=== PATIENT | male | born 1990 | race Caucasian/White ===

== ENCOUNTER 2016-07-15 11:48 | Emergency (ER) | payer SELFPAY ==
[2016-07-15 12:18] VITALS: BP 133/70
[2016-07-15] MEDS ORDERED: Metoclopramide 10 MG/2 ML SDV IVPUSH ONE (12:25)
[2016-07-15] MEDS ORDERED: HYDROmorphone 0.5 MG/0.5 ML Syringe IVPUSH ONE (12:25)
[2016-07-15] MEDS ORDERED: Ketorolac 30 MG/ML SDV IVPUSH SCH (12:30)
[2016-07-15] MEDS ORDERED: Dextrose 5%-0.9% NaCl 1,000 ML IV SCH (12:30)
--- NOTE | 2016-07-15 13:46 | EDM.PDOC ---
ED HPI GENERAL MEDICAL PROBLEM - General Chief Complaint: Gastrointestinal Problem Stated Complaint: DIARRHEA x 3 DAYS, BODY ACHES Time Seen by Provider: 07/15/16 12:23 Source of Information: Reports: Patient History Limitations: Reports: Language Barrier (history obtained by lubrication supervisor. ) - History of Present Illness INITIAL COMMENTS - FREE TEXT/NARRATIVE: 26-year-old male who is [place] speaking presents the ED apparently with nausea vomiting diarrhea since July 11. He states bilious emesis and liquid stool in large volume. No blood per rectum or vomiting. He has diffuse upper abdominal pain from vomiting so much. Lightheaded and dizzy. He eats at home he doesn't think they need anything that could cause food poisoning. So far today since 3:00 he said 5 loose stools. No vomiting but dry heaves today. He takes no medications and has no allergies. No previous abdominal surgery . Denies any use of antibiotics in the last 6 weeks. Onset: Sudden Onset Date: 07/11/16 Onset Time: 22:00 Duration: Day(s):, Constant, Getting Worse Location: Reports: Abdomen Quality: Reports: Ache Severity: Moderate (Abdominal pain is a deep ache in the epigastric region.) Improves with: Reports: None Worsens with: Reports: Other Context: Denies: Activity (Try to eat or drink.), Exercise, Lifting, Sick Contact, Trauma, Other Associated Symptoms: Reports: Fever/Chills, Loss of Appetite, Malaise, Nausea/ Vomiting, Weakness (Intractable for 3-1/2 days.). Denies: No Other Symptoms, Confusion, Chest Pain, Cough, cough w sputum, Diaphoresis, Headaches (Chills but no fever), Rash, Seizure, Shortness of Breath, Syncope Treatments DRIVER/GUIDE: Reports: Other (see below) (None.) Upper Abdominal Pain Score (Numeric/FACES): 10 - Related Data Allergies Allergy/AdvReac Type Severity Reaction Status Date / Time SEA FOOD Allergy Rash Uncoded 07/15/16 12:14 Home Meds: Home Meds Dicyclomine [Bentyl] 20 mg IM Q6H #6 vial 07/15/16 [Rx] Ondansetron [Zofran ODT] 4 mg PO Q6H #8 tab.dis 07/15/16 [Rx] Social & Family History - Tobacco Use Smoking Status *Q: Never Smoker Second Hand Smoke Exposure: No - Recreational Drug Use Recreational Drug Use: No - Living Situation & Occupation Living situation: Reports: Single Occupation: Employed ED ROS GENERAL - Review of Systems Review Of Systems: See Below Constitutional: Reports: Chills, Malaise, Weakness, Fatigue, Decreased Appetite , Weight Loss. Denies: Fever HEENT: Reports: No Symptoms Respiratory: Reports: No Symptoms Cardiovascular: Reports: No Symptoms Endocrine: Reports: No Symptoms GI/Abdominal: Reports: Abdominal Pain (Epigastrium from vomiting so much.), Diarrhea (Title nausea and vomiting for 4 days to loose watery yellowish stools. No blood per rectum), Nausea, Vomiting : Reports: No Symptoms Musculoskeletal: Reports: Other Skin: Reports: No Symptoms (Aches all over and generalized myalgia.) Neurological: Reports: Headache, Difficulty Walking, Weakness Psychiatric: Reports: No Symptoms (Due to weakness) Hematologic/Lymphatic: Reports: No Symptoms Immunologic: Reports: No Symptoms ED EXAM, GI/ABD - Physical Exam Exam: See Below Exam Limited By: Language Barrier (He speaks mostly [place] although he seems to understand he looks pretty well. History and physical examination were done through an lubrication supervisor.) General Appearance: Alert, WD/WN, Mild Distress (He does look ill and volume depleted.) Eyes: Bilateral: Normal Appearance (No jaundice.) Ears: Normal TMs Throat/Mouth: Normal Inspection, Normal Lips, Normal Oropharynx, Other Head: Atraumatic, Normocephalic (Tongue is dry and coated) Neck: Normal Inspection, Supple, Non-Tender, Full Range of Motion. No: Lymphadenopathy (R) Respiratory/Chest: No Respiratory Distress, Lungs Clear, Normal Breath Sounds, No Accessory Muscle Use Cardiovascular: Normal Peripheral Pulses, Regular Rate, Rhythm, No Edema, No Gallop, No Murmur GI/Abdominal: No Distention, No Abnormal Bruit, No Mass, Pelvis Stable, Hyperactive Bowel Sounds, Tenderness (Only in the epigastrium on deep palpation. He has abdominal wall pain from vomiting so much I believe. In the epigastrium only. The rest of the abdomen is benign.), Guarding. No: Rebound (Male) Exam: No Hernia Back Exam: Normal Inspection, Full Range of Motion. No: CVA Tenderness (L), CVA Tenderness (R) Extremities: Normal Inspection, Normal Range of Motion, Non-Tender, No Pedal Edema, Normal Capillary Refill Neurological: Alert, Oriented, CN II-XII Intact, Normal Cognition, Normal Reflexes, No Motor/Sensory Deficits Psychiatric: Normal Affect, Normal Mood Skin Exam: Warm, Dry, Intact, Normal Color, No Rash Course - Vital Signs Last Recorded V/S: Last Vital Signs Temp 36.7 C 07/15/16 12:15 Pulse 83 07/15/16 12:15 Resp 16 07/15/16 12:15 BP 133/70 07/15/16 12:15 Pulse Ox 96 07/15/16 12:15 - Orders/Labs/Meds Labs: Laboratory Tests 07/15/16 07/15/16 07/15/16 Range/Units 12:45 12:45 12:45 WBC 7.38 (4.23-9.07) K/mm3 RBC 4.99 (4.63-6.08) M/mm3 Hgb 14.9 (13.7-17.5) gm/L Hct 42.8 (40.1-51.0) % MCV 85.8 (79.0-92.2) fl MCH 29.9 (25.7-32.2) pg MCHC 34.8 (32.2-35.5) g/dl RDW Std Deviation 41.9 (35.1-43.9) fL Plt Count 351 H (163-337) K/mm3 MPV 9.6 (9.4-12.3) fl Neutrophils % (Manual) 71 H (40-60) % Band Neutrophils % 3 (0-10) % Lymphocytes % (Manual) 15 L (20-40) % Atypical Lymphs % 0 % Monocytes % (Manual) 11 H (2-10) % Eosinophils % (Manual) 0 L (0.8-7.0) % Basophils % (Manual) 0 L (0.2-1.2) Platelet Estimate Adequate Plt Morphology Comment See note RBC Morph Comment Normal Sodium 142 (136-145) mEq/L Potassium 3.9 (3.5-5.1) mEq/L Chloride 105 (98-107) mEq/L Carbon Dioxide 27 (21-32) mEq/L Anion Gap 13.9 (5-15) BUN 13 (7-18) mg/dL Creatinine 1.1 (0.7-1.3) mg/dL Est Cr Clr Drug Dosing 100.87 mL/min Estimated GFR (MDRD) > 60 (>60) mL/min BUN/Creatinine Ratio 11.8 L (14-18) Glucose 103 (74-106) mg/dL Lactic Acid 0.9 (0.4-2.0) mmol/L Calcium 9.2 (8.5-10.1) mg/dL Total Bilirubin 0.5 (0.2-1.0) mg/dL AST 26 (15-37) U/L ALT 59 (16-63) U/L Alkaline Phosphatase 80 (46-116) U/L C-Reactive Protein < 0.2 (<1.0) mg/dL Total Protein 8.2 (6.4-8.2) g/dl Albumin 4.4 (3.4-5.0) g/dl Globulin 3.8 gm/dL Albumin/Globulin Ratio 1.2 (1-2) Lipase 133 (73-393) U/L Ketones (0.0-0.3) mM 07/15/16 Range/Units 12:45 WBC (4.23-9.07) K/mm3 RBC (4.63-6.08) M/mm3 Hgb (13.7-17.5) gm/L Hct (40.1-51.0) % MCV (79.0-92.2) fl MCH (25.7-32.2) pg MCHC (32.2-35.5) g/dl RDW Std Deviation (35.1-43.9) fL Plt Count (163-337) K/mm3 MPV (9.4-12.3) fl Neutrophils % (Manual) (40-60) % Band Neutrophils % (0-10) % Lymphocytes % (Manual) (20-40) % Atypical Lymphs % % Monocytes % (Manual) (2-10) % Eosinophils % (Manual) (0.8-7.0) % Basophils % (Manual) (0.2-1.2) Platelet Estimate Plt Morphology Comment RBC Morph Comment Sodium (136-145) mEq/L Potassium (3.5-5.1) mEq/L Chloride (98-107) mEq/L Carbon Dioxide (21-32) mEq/L Anion Gap (5-15) BUN (7-18) mg/dL Creatinine (0.7-1.3) mg/dL Est Cr Clr Drug Dosing mL/min Estimated GFR (MDRD) (>60) mL/min BUN/Creatinine Ratio (14-18) Glucose (74-106) mg/dL Lactic Acid (0.4-2.0) mmol/L Calcium (8.5-10.1) mg/dL Total Bilirubin (0.2-1.0) mg/dL AST (15-37) U/L ALT (16-63) U/L Alkaline Phosphatase (46-116) U/L C-Reactive Protein (<1.0) mg/dL Total Protein (6.4-8.2) g/dl Albumin (3.4-5.0) g/dl Globulin gm/dL Albumin/Globulin Ratio (1-2) Lipase (73-393) U/L Ketones 0.23 (0.0-0.3) mM Meds: Medications Discontinued Medications Generic Name Dose Route Start Last Admin Trade Name Freq PRN Reason Stop Dose Admin Hydromorphone HCl 0.5 mg 07/15/16 12:25 07/15/16 12:52 Dilaudid IVPUSH 07/15/16 12:26 0.5 mg ONETIME ONE Administration Dextrose/Sodium Chloride 1,000 mls @ 999 mls/hr 07/15/16 12:30 07/15/16 12:50 Dextrose 5%-Normal Saline IV 999 mls/hr ASDIRECTED NANCY Administration Ketorolac Tromethamine 30 mg 07/15/16 12:30 07/15/16 12:50 Toradol IVPUSH 30 mg ONETIME NANCY Administration Metoclopramide HCl 10 mg 07/15/16 12:25 07/15/16 12:49 Reglan IVPUSH 07/15/16 12:26 10 mg ONETIME ONE Administration Ondansetron HCl 4 mg 07/15/16 15:17 07/15/16 15:36 Zofran Odt PO 07/15/16 15:18 4 mg ONETIME ONE Administration - Radiology Interpretation Free Text/Narrative:: 26-year-old male presents the ED with a history of intractable nausea vomiting and watery diarrhea for 3-1/2 days. He reports that he is hurting everywhere. He continues to have nausea and vomiting of bilious material and dry heaves. Has had 5 loose stools this morning thus far. No history of eating out to suggest foodborne illness. He has no pets or hasn't been around anything with Salmonella. Plan he will have lab work performed and a stool sample provided. In the meantime he will be placed on D5 normal saline at open. Reglan 10 mg IV for nausea relief Toradol 30 mg IV for IVH and inflammation relief and Dilaudid 0.5 mg for abdominal pain relief. - Re-Assessments/Exams Free Text/Narrative Re-Assessment/Exam: 07/15/16 13:57 labs are finally back. They reveal a normal white count is 7.38 hemoglobin 14.9 hematocrit 42.8. Platelets are normal 3 and 51,000. Lactic acid level was normal at 0.9 ketones are elevated at 0.23. Chemistry shows sodium of 142 potassium 3.9. Chloride 105 bicarbonate 27. Any gap is 13.9 normal. Lipase 133. Glucose 103. CRP was less than 0.2. 07/15/16 14:57 differential on the white count was 71% neutrophils and 3% band cells. 07/15/16 15:18 he reports she's feeling much improved. He's get down 6 ounces of Gatorade without any filling of nausea vomiting. Given a Zofran 4 mg sublingually now and then he can fill a prescription for similar medicine to take every 6 hours when necessary. Also Bentyl 20 mg every 6 hours. X6 tablets until the diarrhea abates. Place on a clear fluid diet with twice daily from all -day products and no apple or grape juice until stools are formed back up. Off if any further problems occur. Departure - Departure Time of Disposition: 15:11 Disposition: Home, Self-Care 01 Condition: fair Clinical Impression: Gastroenteritis - Discharge Information Prescriptions: Dicyclomine [Bentyl] 20 mg IM Q6H #6 vial Ondansetron [Zofran ODT] 4 mg PO Q6H #8 tab.dis Instructions: Viral Gastroenteritis, Adult, [id number] Referrals: PCP,None [Primary Care Provider] - Forms: ED Department Discharge, Return to Work/School Form Additional Instructions: Evaluation in the emergency day in regards to viral gastroenteritis with recurrent intractable nausea vomiting and diarrhea over the last 3-1/2 days. You 're treated with intravenous fluid replacement medication and medication Reglan 10 mg IV to stop vomiting. Toradol 30 mg and a lot of 0.5 mg IV for abdominal pain relief. Lab tests proved to be close to normal other than mild dehydration. Treatment at home is to be Zofran 4 mg under the tongue with the first tablet given in the ED before your discharge. Extent would be due about 9: 00 tonight. This is to prevent further nausea and vomiting. Diet is to be clear fluids such as Gatorade or Powerade ideally 5-6 ounces per hour. If this is tolerated then he may advance diet soda crackers and then to bread etc. If this is tolerated he may advance to broth soup or turkey rice turkey noodle soup etc. Stay away from all-day products and no apple or grape juice until stools are formed back up. May use Bentyl tablets 20 mg one tablet every 6 hours to relieve abdominal cramping pain and diarrhea. Off work today tomorrow and the next day until you're eating and her strength is restored enough to return to work.
[2016-07-15] MEDS ORDERED: Ondansetron 4 MG Tab.DIS PO ONE (15:17)
== END 2016-07-15 15:43 | disposition home or self-care (01) ==
LOC: JD.ED 11:48
DX: K52.9 Noninfective gastroenteritis and colitis, unspecified (principal); Z91.013 Allergy to seafood
CPT/HCPCS: 36415; 80053; 82009; 83605; 83690; 85025; 86140; 96361; 96374; 96375; 99284; A9270; J1170; J1885; J2765; J7042

== ENCOUNTER 2016-07-18 06:03 | Emergency (ER) | payer SELFPAY ==
[2016-07-18] MEDS ORDERED: Ondansetron 4 MG/2 ML SDV IVPUSH ONE (06:30)
[2016-07-18] MEDS ORDERED: Sodium Chloride 0.9% 2,000 ML IV STA (06:30)
[2016-07-18] MEDS ORDERED: Sodium Chloride 0.9% 10 ML Syringe FLUSH PRN (06:30)
[2016-07-18] MEDS ORDERED: HYDROmorphone 1 MG/ML Syringe IVPUSH ONE (06:33)
--- NOTE | 2016-07-18 06:39 | EDM.PDOC ---
[id number] Chief Complaint: Gastrointestinal Problem Stated Complaint: VOMITING BLOOD/ DIARRHEA/ BODY ACHES Time Seen by Provider: 07/18/16 06:22 - Related Data Allergies Allergy/AdvReac Type Severity Reaction Status Date / Time SEA FOOD Allergy Rash Uncoded 07/15/16 12:14 Home Meds: Home Meds Dicyclomine [Bentyl] 20 mg IM Q6H #6 vial 07/15/16 [Rx] Ondansetron [Zofran ODT] 4 mg PO Q6H #8 tab.dis 07/15/16 [Rx] Amoxicillin 500 mg PO Q12H #28 capsule 07/18/16 [Rx] Clarithromycin 500 mg PO Q12H #28 tablet 07/18/16 [Rx] Hydrocodone/Acetaminophen [Medora 5-325 Tablet] 1 - 2 each PO Q6H PRN #20 tablet 07/18/16 [Rx] Ondansetron [Zofran ODT] 4 mg PO Q4H PRN #20 tab.dis 07/18/16 [Rx] Pantoprazole Sodium [Protonix] 40 mg PO Q12H #60 tablet. 07/18/16 [Rx] Sucralfate [Carafate] 1 gm PO QIDACANDBED #60 cup 07/18/16 [Rx] Sucralfate [Carafate] 1 gm PO QIDACANDBED #60 tablet 07/18/16 [Rx] metroNIDAZOLE [Flagyl] 500 mg PO Q12H #28 tablet 07/18/16 [Rx] Course - Vital Signs Last Recorded V/S: Last Vital Signs Temp 98.6 F 07/18/16 06:12 Pulse 84 07/18/16 10:31 Resp 18 07/18/16 06:12 BP 130/58 L 07/18/16 10:31 Pulse Ox 96 07/18/16 10:31 Orthostatic Blood Pressure [ 129/77 Standing] Orthostatic Blood Pressure [ 129/76 Supine] - Orders/Labs/Meds Orders: Active Orders 24 hr Category Date Time Status Peripheral IV Care [RC] . DIRECTED Care 07/18/16 06:31 Active C DIFFICILE BY PCR W/NAP1 [MOLEC] Stat Lab 07/18/16 07:22 Ordered ED Antiemetic Medication Reflex [OM.PC] Stat Oth 07/18/16 06:31 Ordered Peripheral IV Insertion Adult [OM.PC] Stat Oth 07/18/16 06:30 Ordered Labs: Laboratory Tests 07/18/16 07/18/16 07/18/16 Range/Units 06:55 06:55 06:55 WBC 5.60 (4.23-9.07) K/mm3 RBC 4.81 (4.63-6.08) M/mm3 Hgb 14.3 (13.7-17.5) gm/L Hct 41.4 (40.1-51.0) % MCV 86.1 (79.0-92.2) fl MCH 29.7 (25.7-32.2) pg MCHC 34.5 (32.2-35.5) g/dl RDW Std Deviation 42.1 (35.1-43.9) fL Plt Count 333 (163-337) K/mm3 MPV 9.3 L (9.4-12.3) fl Neut % (Auto) 70.8 H (34.0-67.9) % Lymph % (Auto) 19.1 L (21.8-53.1) % Carroll % (Auto) 7.5 (5.3-12.2) % Eos % (Auto) 2.0 (0.8-7.0) Baso % (Auto) 0.4 (0.1-1.2) % Neut # (Auto) 3.97 (1.78-5.38) K/mm3 Lymph # (Auto) 1.07 L (1.32-3.57) K/mm3 Carroll # (Auto) 0.42 (0.30-0.82) K/mm3 Eos # (Auto) 0.11 (0.04-0.54) K/mm3 Baso # (Auto) 0.02 (0.01-0.08) K/mm3 Sodium 141 (136-145) mEq/L Potassium 3.7 (3.5-5.1) mEq/L Chloride 107 (98-107) mEq/L Carbon Dioxide 27 (21-32) mEq/L Anion Gap 10.7 (5-15) BUN 14 (7-18) mg/dL Creatinine 1.1 (0.7-1.3) mg/dL Est Cr Clr Drug Dosing TNP Estimated GFR (MDRD) > 60 (>60) mL/min BUN/Creatinine Ratio 12.7 L (14-18) Glucose 103 (74-106) mg/dL Calcium 8.9 (8.5-10.1) mg/dL Total Bilirubin 0.3 (0.2-1.0) mg/dL AST 23 (15-37) U/L ALT 52 (16-63) U/L Alkaline Phosphatase 74 (46-116) U/L Total Protein 7.2 (6.4-8.2) g/dl Albumin 3.8 (3.4-5.0) g/dl Globulin 3.4 gm/dL Albumin/Globulin Ratio 1.1 (1-2) Lipase 200 (73-393) U/L Urine Color (Yellow) Urine Appearance (Clear) Urine pH (5.0-8.0) Ur Specific Sparks (1.005-1.030) Urine Protein (Negative) Urine Glucose (UA) (Negative) Urine Ketones (Negative) Urine Occult Blood (Negative) Urine Nitrite (Negative) Urine Bilirubin (Negative) Urine Urobilinogen (0.2-1.0) Ur Leukocyte Esterase (Negative) Urine RBC (0-5) /hpf Urine WBC (0-5) /hpf Ur Epithelial Cells (0-5) /hpf Urine Bacteria (FEW) /hpf Urine Mucus (FEW) /hpf H. pylori IgG Antibody Positive H (NEGATIVE) 07/18/16 Range/Units 08:15 WBC (4.23-9.07) K/mm3 RBC (4.63-6.08) M/mm3 Hgb (13.7-17.5) gm/L Hct (40.1-51.0) % MCV (79.0-92.2) fl MCH (25.7-32.2) pg MCHC (32.2-35.5) g/dl RDW Std Deviation (35.1-43.9) fL Plt Count (163-337) K/mm3 MPV (9.4-12.3) fl Neut % (Auto) (34.0-67.9) % Lymph % (Auto) (21.8-53.1) % Carroll % (Auto) (5.3-12.2) % Eos % (Auto) (0.8-7.0) Baso % (Auto) (0.1-1.2) % Neut # (Auto) (1.78-5.38) K/mm3 Lymph # (Auto) (1.32-3.57) K/mm3 Carroll # (Auto) (0.30-0.82) K/mm3 Eos # (Auto) (0.04-0.54) K/mm3 Baso # (Auto) (0.01-0.08) K/mm3 Sodium (136-145) mEq/L Potassium (3.5-5.1) mEq/L Chloride (98-107) mEq/L Carbon Dioxide (21-32) mEq/L Anion Gap (5-15) BUN (7-18) mg/dL Creatinine (0.7-1.3) mg/dL Est Cr Clr Drug Dosing Estimated GFR (MDRD) (>60) mL/min BUN/Creatinine Ratio (14-18) Glucose (74-106) mg/dL Calcium (8.5-10.1) mg/dL Total Bilirubin (0.2-1.0) mg/dL AST (15-37) U/L ALT (16-63) U/L Alkaline Phosphatase (46-116) U/L Total Protein (6.4-8.2) g/dl Albumin (3.4-5.0) g/dl Globulin gm/dL Albumin/Globulin Ratio (1-2) Lipase (73-393) U/L Urine Color Light yellow (Yellow) Urine Appearance Clear (Clear) Urine pH 7.0 (5.0-8.0) Ur Specific Sparks 1.015 (1.005-1.030) Urine Protein Negative (Negative) Urine Glucose (UA) Negative (Negative) Urine Ketones Negative (Negative) Urine Occult Blood Negative (Negative) Urine Nitrite Negative (Negative) Urine Bilirubin Negative (Negative) Urine Urobilinogen 0.2 (0.2-1.0) Ur Leukocyte Esterase Negative (Negative) Urine RBC 0-5 (0-5) /hpf Urine WBC 0-5 (0-5) /hpf Ur Epithelial Cells 0-5 (0-5) /hpf Urine Bacteria Not seen (FEW) /hpf Urine Mucus Not seen (FEW) /hpf H. pylori IgG Antibody (NEGATIVE) Meds: Medications Discontinued Medications Generic Name Dose Route Start Last Admin Trade Name Freq PRN Reason Stop Dose Admin Diatrizoate Meglum/Diatrizoate Sod 90 ml 07/18/16 08:01 07/18/16 08:29 Gastrografin 37% PO 07/18/16 08:02 90 ml ONETIME ONE Administration Hydromorphone HCl 1 mg 07/18/16 06:33 07/18/16 06:51 Dilaudid IVPUSH 07/18/16 06:34 1 mg ONETIME ONE Administration Hydromorphone HCl 0.5 mg 07/18/16 08:35 07/18/16 08:39 Dilaudid IVPUSH 07/18/16 08:36 0.5 mg ONETIME ONE Administration Sodium Chloride 2,000 mls @ 1,000 mls/hr 07/18/16 06:30 07/18/16 06:51 Normal Saline IV 07/18/16 08:29 1,000 mls/hr .BOLUS STA Administration Sodium Chloride Confirm 07/18/16 08:08 07/18/16 08:18 Normal Saline Administered 07/18/16 08:09 Not Given Dose 1,000 mls @ as directed .ROUTE .STK-MED ONE Iopamidol 125 ml 07/18/16 08:01 07/18/16 08:29 Isovue-300 (61%) IVPUSH 07/18/16 08:02 125 ml ONETIME ONE Administration Ondansetron HCl 4 mg 07/18/16 06:30 07/18/16 06:51 Zofran IVPUSH 07/18/16 06:31 4 mg ONETIME ONE Administration Pantoprazole Sodium 40 mg 07/18/16 08:58 07/18/16 09:08 Protonix Iv IVPUSH 07/18/16 08:59 40 mg ONETIME ONE Administration Sodium Chloride 10 ml 07/18/16 06:30 07/18/16 06:52 Saline Flush FLUSH 10 ml ASDIRECTED PRN Administration Keep Vein Open Sodium Chloride 10 ml 07/18/16 08:01 07/18/16 08:30 Saline Flush FLUSH 07/18/16 08:02 10 ml ONETIME ONE Administration Sucralfate 1 gm 07/18/16 08:58 07/18/16 09:08 Carafate PO 07/18/16 08:59 1 gm ONETIME ONE Administration - Re-Assessments/Exams Free Text/Narrative Re-Assessment/Exam: 07/18/16 08:40 Assumed care at change of shift patient just returned from the CT. His H. pylori is positive. Patient really doesn't have a prior history of this. On my examination could active bowel sounds soft epigastric and left upper quadrant discomfort no rebound or guarding. He did vomit some blood this morning bright red he is unable to quantify it. Patient has had a couple of loose stools 3 thought he had some maroon blood in this. 07/18/16 09:30 Was given Protonix and Carafate he had good relief of symptoms after getting the Carafate. 07/18/16 09:[address] Escobar. Patient's vitals are stable his hemoglobin and hematocrit are stable he has not had any more diarrhea or vomiting her emergency department. Patient is willing to try outpatient therapy and will return to the emergency room with any questions or problems patient will be started on treatment for his H. pylori and will followup with Dr. Escobar next week. Disposition and followup discussed with Dr. Escobar. 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 Sucralfate [Carafate] 1 gm PO QIDACANDBED #60 cup Sucralfate [Carafate] 1 gm PO QIDACANDBED #60 tablet metroNIDAZOLE [Flagyl] 500 mg PO Q12H #28 tablet Instructions: Gastritis, Adult, [id number], Viral Gastroenteritis, Adult, [id number] Referrals: PCP,None [Primary Care Provider] - Nohemi Escobar MD [Physician] - Forms: ED Department Discharge Additional Instructions: Return to the emergency room with any questions or problems return with worsening symptoms or not improving. You have been started on 3 antibiotics each one will be taken twice daily for 14 days. You have then started on Protonix this will be taken twice daily. This is to help your stomach. You have been started on Carafate, this is like the medication that helped with your symptoms here in the emergency department, this one needs to be taken 4 times a day. Take it with breakfast lunch and supper and before you go to bed. Take your other medications at least one hour before or 2 hours after taking this medication. You been given Zofran, use as needed for nausea and vomiting. You had been given Medora, or hydrocodone, this is for pain use as needed. This medication can cause sedation. Allow 12 hours after using this medication before driving or returning to work. Followup with Dr. Escobar early next week. - My Orders Last 24 Hours: My Active Orders 07/18/16 06:30 Peripheral IV Insertion Adult [OM.PC] Stat 07/18/16 06:31 Peripheral IV Care [RC] . DIRECTED ED Antiemetic Medication Reflex [OM.PC] Stat 07/18/16 07:22 C DIFFICILE BY PCR W/NAP1 [MOLEC] Stat - Assessment/Plan Last 24 Hours: My Active Orders 07/18/16 06:30 Peripheral IV Insertion Adult [OM.PC] Stat 07/18/16 06:31 Peripheral IV Care [RC] . DIRECTED ED Antiemetic Medication Reflex [OM.PC] Stat 07/18/16 07:22 C DIFFICILE BY PCR W/NAP1 [MOLEC] Stat <Jamshid Gan - Last Filed: 07/18/16 16:41> ED HPI GENERAL MEDICAL PROBLEM - General Source of Information: Reports: Patient History Limitations: Reports: No Limitations - History of Present Illness INITIAL COMMENTS - FREE TEXT/NARRATIVE: The patient presents with abdominal pain, nausea and vomiting, and bloody stool and emesis The patient says this has been going on for about 1 week. He was seen here 3 days ago. His labs all looked good. He was given zofran and he did okay for a few days. This morning it came back more severe with bloody diarrhea and bloody emesis. He now has generalized moderate to severe abdominal pain. He does not thing he ate any bad food. He has not been around anyone who is sick. He still has his gallbladder and appendix. Onset: Gradual Duration: Week(s): (1) Location: Reports: Abdomen, Generalized Quality: Reports: Sharp Severity: Moderate Improves with: Reports: None Worsens with: Reports: None Associated Symptoms: Reports: Nausea/Vomiting, Weakness. Denies: Chest Pain, Fever/Chills, Shortness of Breath Abdominal Pain Score (Numeric/FACES): 4 Past Medical History - Past Health History Medical/Surgical History: Denies Medical/Surgical History Respiratory History: Reports: Asthma Social & Family History - Tobacco Use Smoking Status *Q: Never Smoker Second Hand Smoke Exposure: No - Recreational Drug Use Recreational Drug Use: No - Living Situation & Occupation Living situation: Reports: Single Occupation: Employed ED ROS GENERAL - Review of Systems Review Of Systems: See Below Constitutional: Reports: No Symptoms HEENT: Reports: No Symptoms Respiratory: Reports: No Symptoms Cardiovascular: Reports: No Symptoms Endocrine: Reports: No Symptoms GI/Abdominal: Reports: Abdominal Pain, Bloody Stool, Diarrhea, Hematemesis, Nausea, Vomiting : Reports: No Symptoms Musculoskeletal: Reports: No Symptoms Skin: Reports: No Symptoms ED EXAM, GI/ABD - Physical Exam Exam: See Below Exam Limited By: No Limitations General Appearance: Alert, No Apparent Distress Ears: Normal External Exam Nose: Normal Inspection Head: Atraumatic, Normocephalic Neck: Normal Inspection Respiratory/Chest: No Respiratory Distress, Lungs Clear, Normal Breath Sounds Cardiovascular: Regular Rate, Rhythm, No Edema, No Murmur GI/Abdominal: Soft, No Organomegaly, No Mass, Tenderness (Moderate generalized tenderness) Course - Orders/Labs/Meds Labs: Laboratory Tests 07/18/16 07/18/16 07/18/16 Range/Units 06:55 06:55 06:55 WBC 5.60 (4.23-9.07) K/mm3 RBC 4.81 (4.63-6.08) M/mm3 Hgb 14.3 (13.7-17.5) gm/L Hct 41.4 (40.1-51.0) % MCV 86.1 (79.0-92.2) fl MCH 29.7 (25.7-32.2) pg MCHC 34.5 (32.2-35.5) g/dl RDW Std Deviation 42.1 (35.1-43.9) fL Plt Count 333 (163-337) K/mm3 MPV 9.3 L (9.4-12.3) fl Neut % (Auto) 70.8 H (34.0-67.9) % Lymph % (Auto) 19.1 L (21.8-53.1) % Carroll % (Auto) 7.5 (5.3-12.2) % Eos % (Auto) 2.0 (0.8-7.0) Baso % (Auto) 0.4 (0.1-1.2) % Neut # (Auto) 3.97 (1.78-5.38) K/mm3 Lymph # (Auto) 1.07 L (1.32-3.57) K/mm3 Carroll # (Auto) 0.42 (0.30-0.82) K/mm3 Eos # (Auto) 0.11 (0.04-0.54) K/mm3 Baso # (Auto) 0.02 (0.01-0.08) K/mm3 Sodium 141 (136-145) mEq/L Potassium 3.7 (3.5-5.1) mEq/L Chloride 107 (98-107) mEq/L Carbon Dioxide 27 (21-32) mEq/L Anion Gap 10.7 (5-15) BUN 14 (7-18) mg/dL Creatinine 1.1 (0.7-1.3) mg/dL Est Cr Clr Drug Dosing TNP Estimated GFR (MDRD) > 60 (>60) mL/min BUN/Creatinine Ratio 12.7 L (14-18) Glucose 103 (74-106) mg/dL Calcium 8.9 (8.5-10.1) mg/dL Total Bilirubin 0.3 (0.2-1.0) mg/dL AST 23 (15-37) U/L ALT 52 (16-63) U/L Alkaline Phosphatase 74 (46-116) U/L Total Protein 7.2 (6.4-8.2) g/dl Albumin 3.8 (3.4-5.0) g/dl Globulin 3.4 gm/dL Albumin/Globulin Ratio 1.1 (1-2) Lipase 200 (73-393) U/L Urine Color (Yellow) Urine Appearance (Clear) Urine pH (5.0-8.0) Ur Specific Sparks (1.005-1.030) Urine Protein (Negative) Urine Glucose (UA) (Negative) Urine Ketones (Negative) Urine Occult Blood (Negative) Urine Nitrite (Negative) Urine Bilirubin (Negative) Urine Urobilinogen (0.2-1.0) Ur Leukocyte Esterase (Negative) Urine RBC (0-5) /hpf Urine WBC (0-5) /hpf Ur Epithelial Cells (0-5) /hpf Urine Bacteria (FEW) /hpf Urine Mucus (FEW) /hpf H. pylori IgG Antibody Positive H (NEGATIVE) 07/18/16 Range/Units 08:15 WBC (4.23-9.07) K/mm3 RBC (4.63-6.08) M/mm3 Hgb (13.7-17.5) gm/L Hct (40.1-51.0) % MCV (79.0-92.2) fl MCH (25.7-32.2) pg MCHC (32.2-35.5) g/dl RDW Std Deviation (35.1-43.9) fL Plt Count (163-337) K/mm3 MPV (9.4-12.3) fl Neut % (Auto) (34.0-67.9) % Lymph % (Auto) (21.8-53.1) % Carroll % (Auto) (5.3-12.2) % Eos % (Auto) (0.8-7.0) Baso % (Auto) (0.1-1.2) % Neut # (Auto) (1.78-5.38) K/mm3 Lymph # (Auto) (1.32-3.57) K/mm3 Carroll # (Auto) (0.30-0.82) K/mm3 Eos # (Auto) (0.04-0.54) K/mm3 Baso # (Auto) (0.01-0.08) K/mm3 Sodium (136-145) mEq/L Potassium (3.5-5.1) mEq/L Chloride (98-107) mEq/L Carbon Dioxide (21-32) mEq/L Anion Gap (5-15) BUN (7-18) mg/dL Creatinine (0.7-1.3) mg/dL Est Cr Clr Drug Dosing Estimated GFR (MDRD) (>60) mL/min BUN/Creatinine Ratio (14-18) Glucose (74-106) mg/dL Calcium (8.5-10.1) mg/dL Total Bilirubin (0.2-1.0) mg/dL AST (15-37) U/L ALT (16-63) U/L Alkaline Phosphatase (46-116) U/L Total Protein (6.4-8.2) g/dl Albumin (3.4-5.0) g/dl Globulin gm/dL Albumin/Globulin Ratio (1-2) Lipase (73-393) U/L Urine Color Light yellow (Yellow) Urine Appearance Clear (Clear) Urine pH 7.0 (5.0-8.0) Ur Specific Sparks 1.015 (1.005-1.030) Urine Protein Negative (Negative) Urine Glucose (UA) Negative (Negative) Urine Ketones Negative (Negative) Urine Occult Blood Negative (Negative) Urine Nitrite Negative (Negative) Urine Bilirubin Negative (Negative) Urine Urobilinogen 0.2 (0.2-1.0) Ur Leukocyte Esterase Negative (Negative) Urine RBC 0-5 (0-5) /hpf Urine WBC 0-5 (0-5) /hpf Ur Epithelial Cells 0-5 (0-5) /hpf Urine Bacteria Not seen (FEW) /hpf Urine Mucus Not seen (FEW) /hpf H. pylori IgG Antibody (NEGATIVE) Meds: Medications Discontinued Medications Generic Name Dose Route Start Last Admin Trade Name Freq PRN Reason Stop Dose Admin Diatrizoate Meglum/Diatrizoate Sod 90 ml 07/18/16 08:01 07/18/16 08:29 Gastrografin 37% PO 07/18/16 08:02 90 ml ONETIME ONE Administration Hydromorphone HCl 1 mg 07/18/16 06:33 07/18/16 06:51 Dilaudid IVPUSH 07/18/16 06:34 1 mg ONETIME ONE Administration Hydromorphone HCl 0.5 mg 07/18/16 08:35 07/18/16 08:39 Dilaudid IVPUSH 07/18/16 08:36 0.5 mg ONETIME ONE Administration Sodium Chloride 2,000 mls @ 1,000 mls/hr 07/18/16 06:30 07/18/16 06:51 Normal Saline IV 07/18/16 08:29 1,000 mls/hr .BOLUS STA Administration Sodium Chloride Confirm 07/18/16 08:08 07/18/16 08:18 Normal Saline Administered 07/18/16 08:09 Not Given Dose 1,000 mls @ as directed .ROUTE .STK-MED ONE Iopamidol 125 ml 07/18/16 08:01 07/18/16 08:29 Isovue-300 (61%) IVPUSH 07/18/16 08:02 125 ml ONETIME ONE Administration Ondansetron HCl 4 mg 07/18/16 06:30 07/18/16 06:51 Zofran IVPUSH 07/18/16 06:31 4 mg ONETIME ONE Administration Pantoprazole Sodium 40 mg 07/18/16 08:58 07/18/16 09:08 Protonix Iv IVPUSH 07/18/16 08:59 40 mg ONETIME ONE Administration Sodium Chloride 10 ml 07/18/16 06:30 07/18/16 06:52 Saline Flush FLUSH 10 ml ASDIRECTED PRN Administration Keep Vein Open Sodium Chloride 10 ml 07/18/16 08:01 07/18/16 08:30 Saline Flush FLUSH 07/18/16 08:02 10 ml ONETIME ONE Administration Sucralfate 1 gm 07/18/16 08:58 07/18/16 09:08 Carafate PO 07/18/16 08:59 1 gm ONETIME ONE Administration - Re-Assessments/Exams Free Text/Narrative Re-Assessment/Exam: 07/18/16 06:39 He was orthostatic. I ordered an IV 2L bolus, zofran 4mg IV, dilaudid 1mg IV, labs, UA, and CT of his abdomen and pelvis. 07/18/16 16:39 It was change of shift Dr Hampton took over. The patient's CBC and CMP looked good. His UA shows no UTI. His CT showed no acute findings. His H-pylori was positive. Dr Hampton treated him for that.
[2016-07-18] MEDS ORDERED: Diatrizoate Meglumine/Diatrizoate Sodium 37% 120 ML Bottle PO ONE (08:01)
[2016-07-18] MEDS ORDERED: Iopamidol 612 MG/ML 150 ML Bottle IVPUSH ONE (08:01)
[2016-07-18] MEDS ORDERED: Sodium Chloride 0.9% 10 ML Syringe FLUSH ONE (08:01)
[2016-07-18] MEDS ORDERED: Sodium Chloride 0.9% 1,000 ML ONE (08:08)
[2016-07-18] MEDS ORDERED: HYDROmorphone 0.5 MG/0.5 ML Syringe IVPUSH ONE (08:35)
[2016-07-18] MEDS ORDERED: Sucralfate Suspension 1 GM/10 ML Cup PO ONE (08:58)
[2016-07-18] MEDS ORDERED: Pantoprazole 40 MG Vial IVPUSH ONE (08:58)
--- NOTE | 2016-07-18 10:02 | CT ---
CT abdomen and pelvis Technique: Multiple axial sections were obtained from above the dome of the diaphragm inferiorly through the pubic symphysis. Intravenous and oral contrast was utilized. Delayed images were also obtained through the bladder. Comparison: No previous abdominal imaging. Findings: Small portion of the visualized lung bases are clear. Liver shows a very minimal low density lesion within the anterior right lobe measuring 3 mm which is felt to be incidental and most likely due to minimal cyst. Liver is otherwise unremarkable. Spleen appears normal. Adrenal glands show no nodule. Pancreas is within normal limits. Kidney show symmetric contrast enhancement without hydronephrosis or mass. Aorta shows no aneurysmal dilatation. No retroperitoneal adenopathy or mesenteric abnormalities are seen. Appendix is seen which appears within normal limits. No pelvic mass or adenopathy is seen. 2 nonspecific densities are seen to the left side of the scrotum which have Hounsfield units of metal and please correlate as to etiology. Delayed images shows contrast within the bladder. No inflammatory change or free fluid is seen. No bowel dilatation is identified. Bone window settings were reviewed which appears within normal limits for the patient's age. Impression: 1. 2 metallic type densities projected superficially to the left side of the scrotum. Etiology not certain. These could be external or internal to the patient. 2. Minimal low density lesion within the liver which is felt to be incidental. 3. No additional abnormality is appreciated on CT study of the abdomen and pelvis. Diagnostic code #2
[2016-07-18 10:35] VITALS: BP 130/58
== END 2016-07-18 10:31 | disposition home or self-care (01) ==
LOC: JD.ED 06:03
DX: K52.9 Noninfective gastroenteritis and colitis, unspecified (principal); K29.60 Other gastritis without bleeding; B96.81 Helicobacter pylori [H. pylori] as the cause of diseases classified elsewhere; J45.909 Unspecified asthma, uncomplicated; Z91.013 Allergy to seafood; Z79.899 Other long term (current) drug therapy
CPT/HCPCS: 36415; 74177; 80053; 81001; 83690; 85025; 86677; 96361; 96374; 96375; 96376; 99285; A9270; C9113; J1170; J2405; J7040; J7050; Q9963; Q9967; 99284

== ENCOUNTER 2016-08-02 10:10 | Emergency (ER) | payer SELFPAY ==
[2016-08-02 10:30] VITALS: BP 130/75
--- NOTE | 2016-08-02 10:53 | EDM.PDOC ---
ED HPI GENERAL MEDICAL PROBLEM - General Chief Complaint: Abdominal Pain Stated Complaint: ABDOMINAL PAIN Time Seen by Provider: 08/02/16 10:53 Source of Information: Reports: Patient - History of Present Illness INITIAL COMMENTS - FREE TEXT/NARRATIVE: Patient is here today for persistent abdominal pain, nausea, vomiting and diarrhea. He was evaluated in ER previously on 07/15 and 07/18 for this. He was diagnosed with H. pylori and started on antibiotics. He did followup with surgery, Dr. Nohemi Escobar who performed an EGD last week. Del caputo continues to be on his 3 antibiotics as well as Protonix and Carafate. He is here today as nausea and pain persist. He feels that this has improved slightly but very minimally. He has had a very bland diet he continues with white rice, chicken and water. He does have Gatorade occasionally, denies any triggering foods such as coffee, soda, spicy food but he does continue to smoke several cigarettes per day. Abdominal Pain Score (Numeric/FACES): 10 - Related Data Allergies Allergy/AdvReac Type Severity Reaction Status Date / Time fish derived Allergy Rash Verified 08/02/16 10:21 shellfish derived Allergy Rash Verified 08/02/16 10:21 Home Meds: Home Meds Amoxicillin 500 mg PO Q12H #28 capsule 07/18/16 [Rx] Clarithromycin 500 mg PO Q12H #28 tablet 07/18/16 [Rx] Hydrocodone/Acetaminophen [Onyx 5-325 Tablet] 1 - 2 each PO Q6H PRN #20 tablet 07/18/16 [Rx] Ondansetron [Zofran ODT] 4 mg PO Q4H PRN #20 tab.dis 07/18/16 [Rx] Pantoprazole Sodium [Protonix] 40 mg PO Q12H #60 tablet. 07/18/16 [Rx] Sucralfate [Carafate] 1 gm PO QIDACANDBED #60 tablet 07/18/16 [Rx] metroNIDAZOLE [Flagyl] 500 mg PO Q12H #28 tablet 07/18/16 [Rx] Past Medical History - Past Health History Medical/Surgical History: Denies Medical/Surgical History Respiratory History: Reports: Asthma Social & Family History - Family History Family Medical History: Noncontributory - Tobacco Use Smoking Status *Q: Current Every Day Smoker Years of Tobacco use: 1 Packs/Tins Daily: 0.2 Second Hand Smoke Exposure: No - Caffeine Use Caffeine Use: Reports: None - Recreational Drug Use Recreational Drug Use: Yes Drug Use in Last 12 Months: No Recreational Drug Type: Reports: Cocaine, Marijuana/Hashish - Living Situation & Occupation Living situation: Reports: Single Occupation: Employed ED ROS GENERAL - Review of Systems Review Of Systems: See Below Constitutional: Reports: Weakness, Fatigue, Decreased Appetite. Denies: Fever, Chills HEENT: Reports: No Symptoms Respiratory: Reports: No Symptoms Cardiovascular: Reports: No Symptoms Endocrine: Reports: Fatigue GI/Abdominal: Reports: Abdominal Pain, Diarrhea, Decreased Appetite, Nausea, Vomiting. Denies: Black Stool, Bloody Stool, Constipation, Difficulty Swallowing, Hematochezia, Melena : Reports: No Symptoms Musculoskeletal: Reports: No Symptoms Skin: Reports: No Symptoms Neurological: Reports: No Symptoms Psychiatric: Reports: No Symptoms ED EXAM, GI/ABD - Physical Exam Exam: See Below Exam Limited By: No Limitations General Appearance: Alert, WD/WN, No Apparent Distress Ears: Normal External Exam, Normal Canal, Hearing Grossly Normal, Normal TMs Throat/Mouth: Normal Inspection, Normal Oropharynx Head: Atraumatic, Normocephalic Respiratory/Chest: No Respiratory Distress, Lungs Clear, Normal Breath Sounds Cardiovascular: Regular Rate, Rhythm, No Murmur, No Rub GI/Abdominal: Normal Bowel Sounds, Soft, Tenderness (Mild diffuse tenderness, moderate epigatric tenderness) Back Exam: Normal Inspection Neurological: Alert, Oriented, Normal Cognition Psychiatric: Normal Affect, Normal Mood Skin Exam: Warm, Dry, Intact, Tattoo(s) Course - Vital Signs Last Recorded V/S: Last Vital Signs Temp 99.6 F 08/02/16 10:27 Pulse 83 08/02/16 10:27 Resp 18 08/02/16 10:27 BP 130/75 08/02/16 10:27 Pulse Ox 98 08/02/16 10:27 - Orders/Labs/Meds Labs: Laboratory Tests 08/02/16 08/02/16 Range/Units 10:35 10:35 WBC 4.88 (4.23-9.07) K/mm3 RBC 4.81 (4.63-6.08) M/mm3 Hgb 14.4 (13.7-17.5) gm/L Hct 41.4 (40.1-51.0) % MCV 86.1 (79.0-92.2) fl MCH 29.9 (25.7-32.2) pg MCHC 34.8 (32.2-35.5) g/dl RDW Std Deviation 42.8 (35.1-43.9) fL Plt Count 379 H (163-337) K/mm3 MPV 9.7 (9.4-12.3) fl Neutrophils % (Manual) 63 H (40-60) % Band Neutrophils % 0 (0-10) % Lymphocytes % (Manual) 31 (20-40) % Atypical Lymphs % 0 % Monocytes % (Manual) 6 (2-10) % Eosinophils % (Manual) 0 L (0.8-7.0) % Basophils % (Manual) 0 L (0.2-1.2) Platelet Estimate Adequate RBC Morph Comment Normal Sodium 143 (136-145) mEq/L Potassium 3.8 (3.5-5.1) mEq/L Chloride 109 H (98-107) mEq/L Carbon Dioxide 24 (21-32) mEq/L Anion Gap 13.8 (5-15) BUN 14 (7-18) mg/dL Creatinine 1.1 (0.7-1.3) mg/dL Est Cr Clr Drug Dosing 100.87 mL/min Estimated GFR (MDRD) > 60 (>60) mL/min BUN/Creatinine Ratio 12.7 L (14-18) Glucose 98 (74-106) mg/dL Calcium 9.1 (8.5-10.1) mg/dL Total Bilirubin 1.0 (0.2-1.0) mg/dL AST 41 H (15-37) U/L ALT 70 H (16-63) U/L Alkaline Phosphatase 83 (46-116) U/L C-Reactive Protein 0.6 (<1.0) mg/dL Total Protein 8.4 H (6.4-8.2) g/dl Albumin 4.5 (3.4-5.0) g/dl Globulin 3.9 gm/dL Albumin/Globulin Ratio 1.2 (1-2) Lipase 118 (73-393) U/L Meds: Medications Discontinued Medications Generic Name Dose Route Start Last Admin Trade Name Freq PRN Reason Stop Dose Admin Hydromorphone HCl 0.5 mg 08/02/16 11:08/02/16 11:19 Dilaudid IVPUSH 08/02/16 11:10 0.5 mg ONETIME ONE Administration Sodium Chloride 1,000 mls @ 999 mls/hr 08/02/16 11:08/02/16 11:17 Normal Saline IV 08/02/16 12:09 999 mls/hr ONETIME ONE Administration Ondansetron HCl 4 mg 08/02/16 11:08/02/16 11:18 Zofran IVPUSH 08/02/16 11:10 4 mg ONETIME ONE Administration - Re-Assessments/Exams Free Text/Narrative Re-Assessment/Exam: Patient had complete resolution of his nausea with Zofran and his pain has resolved with 0.5 mg of Dilaudid. He does have a ride home. Patient does still have his hydrocodone at home and he was initially prescribed for the pain , he states that he had not taken this because he didn't know if he still could. He has not been taking his Zofran for his nausea if he strained to take as few medications as possible. I did discuss this with Dr. Escobar's nurse who reviewed Dr. Escobar's clinic note and EGD report with me. WBC 4,880, CRP 0.6. Lipase is 118. Liver enzymes mildly elevated possibly and will need to be rechecked on an outpatient basis in the future. Not acute abdomen, at this time I do not feel that further workup in the emergency room is needed. He is to continue on his antibiotics, Protonix and Carafate. PRN Zofran for nausea, since he is nauseated in the morning I recommend he do this on his bedside stand and take first thing in the morning. He may use his hydrocodone that he hasn't home as he needs it for pain. Continue with the bland diet and push fluids as much as possible as well as continue with HOB elevation and no liquids or foods 3 hours before bed. He is to follow-up with Dr Escobar as scheduled on or certainly return to ER if symtpoms should worsen. 08/02/16 12:03 08/02/16 12:54 Departure - Departure Time of Disposition: 12:06 Disposition: Home, Self-Care 01 Condition: good Clinical Impression: Nausea, vomiting and diarrhea - Discharge Information Instructions: Nausea, Adult, Diarrhea, Adult Referrals: PCP,None [Primary Care Provider] - Forms: ED Department Discharge Additional Instructions: I recommend you continue your medications as prescribed. Continue with the bland diet and increased fluids. I recommend that you put your nausea medication, Zofran/ondasteron, on your night stand so that you can take in the morning if you are nauseated. You may use hydrocodone that you were prescribed previously for pain. Keep her followup with Dr. Escobar on or certainly return to ER if your symptoms should worsen.
[2016-08-02] MEDS ORDERED: HYDROmorphone 0.5 MG/0.5 ML Syringe IVPUSH ONE (11:09)
[2016-08-02] MEDS ORDERED: Ondansetron 4 MG/2 ML SDV IVPUSH ONE (11:09)
[2016-08-02] MEDS ORDERED: Sodium Chloride 0.9% 1,000 ML IV ONE (11:09)
== END 2016-08-02 12:35 | disposition home or self-care (01) ==
LOC: JD.ED 10:10
DX: R11.2 Nausea with vomiting, unspecified (principal); R19.7 Diarrhea, unspecified; F17.210 Nicotine dependence, cigarettes, uncomplicated; J45.909 Unspecified asthma, uncomplicated; Z91.013 Allergy to seafood
CPT/HCPCS: 36415; 80053; 83690; 85025; 86140; 96361; 96374; 96375; 99284; J1170; J2405; J7040

== ENCOUNTER 2016-09-04 09:21 | Emergency (ER) | payer BC, OTHER ==
[2016-09-04] MEDS ORDERED: Sodium Chloride 0.9% 10 ML Syringe FLUSH PRN (09:57)
[2016-09-04] MEDS ORDERED: Ondansetron 4 MG/2 ML SDV IVPUSH ONE (09:57)
[2016-09-04] MEDS ORDERED: Sodium Chloride 0.9% 1,000 ML IV STA (09:57)
[2016-09-04] MEDS ORDERED: HYDROmorphone 0.5 MG/0.5 ML Syringe IVPUSH ONE (09:58)
--- NOTE | 2016-09-04 10:04 | EDM.PDOC ---
ED HPI GENERAL MEDICAL PROBLEM - General Chief Complaint: Gastrointestinal Problem Stated Complaint: VOMITING/DIARRHEA Time Seen by Provider: 09/04/16 09:49 Source of Information: Reports: Patient History Limitations: Reports: No Limitations - History of Present Illness INITIAL COMMENTS - FREE TEXT/NARRATIVE: The patient presents with epigastric abdominal pain, nausea, vomiting and diarrhea. This has been an ongoing problem for a few weeks. He has been evaluated here a few times. He saw Dr Escobar and she did an EGD and there was some gastritis. He was H-pylori positive and was on antibiotics and carafate. He got a little better but no he hurts again. He is scheduled to see a GI specialist tomorrow at [facility] in [place]. He has some diarrhea with it. He has no fever, chills, cough, chest pain or shortness of breath. He has no dysuria. He has changed his diet dramatically. He does not eat anything spicy. He will eat mostly rice and chicken. He stopped smoking and drinking. Onset: Gradual Duration: Week(s): Location: Reports: Abdomen Quality: Reports: Sharp Severity: Moderate Improves with: Reports: None Worsens with: Reports: None Associated Symptoms: Reports: Nausea/Vomiting. Denies: Chest Pain, Cough, Fever /Chills, Shortness of Breath Epigastric Pain Score (Numeric/FACES): 10 - Related Data Allergies Allergy/AdvReac Type Severity Reaction Status Date / Time fish derived Allergy Rash Verified 09/04/16 09:39 shellfish derived Allergy Rash Verified 09/04/16 09:39 Home Meds: Home Meds Amoxicillin 500 mg PO Q12H #28 capsule 07/18/16 [Rx] Hydrocodone/Acetaminophen [[place] 5-325 Tablet] 1 - 2 each PO Q6H PRN #20 tablet 07/18/16 [Rx] Pantoprazole Sodium [Protonix] 40 mg PO Q12H #60 tablet. 07/18/16 [Rx] Sucralfate [Carafate] 1 gm PO QIDACANDBED #60 tablet 07/18/16 [Rx] metroNIDAZOLE [Flagyl] 500 mg PO Q12H #28 tablet 07/18/16 [Rx] Hydrocodone/Acetaminophen [Hydrocodon-Acetaminophen 5-325] 1 - 2 each PO Q6HR PRN #20 tablet 09/04/16 [Rx] Ondansetron [Zofran ODT] 4 mg PO Q6H PRN #20 tab.dis 09/04/16 [Rx] Past Medical History - Past Health History Medical/Surgical History: Denies Medical/Surgical History Respiratory History: Reports: Asthma Social & Family History - Family History Family Medical History: Noncontributory - Tobacco Use Smoking Status *Q: Never Smoker Years of Tobacco use: 1 Packs/Tins Daily: 0.2 Second Hand Smoke Exposure: No - Caffeine Use Caffeine Use: Reports: None - Recreational Drug Use Recreational Drug Use: No Drug Use in Last 12 Months: No Recreational Drug Type: Reports: Cocaine, Marijuana/Hashish - Living Situation & Occupation Living situation: Reports: Single Occupation: Employed ED ROS GENERAL - Review of Systems Review Of Systems: See Below Constitutional: Reports: No Symptoms HEENT: Reports: No Symptoms Respiratory: Reports: No Symptoms Cardiovascular: Reports: No Symptoms Endocrine: Reports: No Symptoms GI/Abdominal: Reports: Abdominal Pain, Diarrhea, Nausea, Vomiting : Reports: No Symptoms Musculoskeletal: Reports: No Symptoms ED EXAM, GI/ABD - Physical Exam Exam: See Below Exam Limited By: No Limitations General Appearance: Alert, No Apparent Distress Ears: Normal External Exam Nose: Normal Inspection Head: Atraumatic, Normocephalic Neck: Normal Inspection Respiratory/Chest: No Respiratory Distress, Lungs Clear, Normal Breath Sounds Cardiovascular: Regular Rate, Rhythm, No Edema, No Murmur GI/Abdominal: Soft, No Organomegaly, No Mass, Tenderness (Moderate pain to palpation to the epigastric region) Course - Vital Signs Last Recorded V/S: Last Vital Signs Temp 97.5 F 09/04/16 09:33 Pulse 71 09/04/16 09:33 Resp 18 09/04/16 09:33 BP 127/87 09/04/16 09:33 Pulse Ox 97 09/04/16 09:33 - Orders/Labs/Meds Orders: Active Orders 24 hr Category Date Time Status Peripheral IV Care [RC] . DIRECTED Care 09/04/16 09:58 Active Sodium Chloride 0.9% [Saline Flush] Med 09/04/16 09:57 Active 10 ml FLUSH ASDIRECTED PRN ED Antiemetic Medication Reflex [OM.PC] Stat Oth 09/04/16 09:58 Ordered Peripheral IV Insertion Adult [OM.PC] Stat Oth 09/04/16 09:57 Ordered Medication Orders Sodium Chloride (Saline Flush) 10 ml FLUSH ASDIRECTED PRN PRN Reason: Keep Vein Open Last Admin: 09/04/16 10:25 Dose: 10 ml Labs: Laboratory Tests 09/04/16 09/04/16 Range/Units 10:25 10:25 WBC 6.12 (4.23-9.07) K/mm3 RBC 4.83 (4.63-6.08) M/mm3 Hgb 14.5 (13.7-17.5) gm/L Hct 42.4 (40.1-51.0) % MCV 87.8 (79.0-92.2) fl MCH 30.0 (25.7-32.2) pg MCHC 34.2 (32.2-35.5) g/dl RDW Std Deviation 45.2 H (35.1-43.9) fL Plt Count 354 H (163-337) K/mm3 MPV 9.8 (9.4-12.3) fl Neut % (Auto) 70.2 H (34.0-67.9) % Lymph % (Auto) 20.3 L (21.8-53.1) % Amador % (Auto) 7.5 (5.3-12.2) % Eos % (Auto) 1.3 (0.8-7.0) Baso % (Auto) 0.5 (0.1-1.2) % Neut # (Auto) 4.30 (1.78-5.38) K/mm3 Lymph # (Auto) 1.24 L (1.32-3.57) K/mm3 Amador # (Auto) 0.46 (0.30-0.82) K/mm3 Eos # (Auto) 0.08 (0.04-0.54) K/mm3 Baso # (Auto) 0.03 (0.01-0.08) K/mm3 Sodium 140 (136-145) mEq/L Potassium 4.6 (3.5-5.1) mEq/L Chloride 106 (98-107) mEq/L Carbon Dioxide 29 (21-32) mEq/L Anion Gap 9.6 (5-15) BUN 13 (7-18) mg/dL Creatinine 1.1 (0.7-1.3) mg/dL Est Cr Clr Drug Dosing 100.87 mL/min Estimated GFR (MDRD) > 60 (>60) mL/min BUN/Creatinine Ratio 11.8 L (14-18) Glucose 97 (74-106) mg/dL Calcium 8.9 (8.5-10.1) mg/dL Total Bilirubin 0.6 (0.2-1.0) mg/dL AST 34 (15-37) U/L ALT 80 H (16-63) U/L Alkaline Phosphatase 75 (46-116) U/L Total Protein 7.8 (6.4-8.2) g/dl Albumin 4.2 (3.4-5.0) g/dl Globulin 3.6 gm/dL Albumin/Globulin Ratio 1.2 (1-2) Lipase 155 (73-393) U/L Meds: Medications Generic Name Dose Route Start Last Admin Trade Name Freq PRN Reason Stop Dose Admin Sodium Chloride 10 ml 09/04/16 09:57 09/04/16 10:25 Saline Flush FLUSH 10 ml ASDIRECTED PRN Administration Keep Vein Open Discontinued Medications Generic Name Dose Route Start Last Admin Trade Name Freq PRN Reason Stop Dose Admin Hydromorphone HCl 0.5 mg 09/04/16 09:58 09/04/16 10:32 Dilaudid IVPUSH 09/04/16 09:59 0.5 mg ONETIME ONE Administration Sodium Chloride 1,000 mls @ 1,000 mls/hr 09/04/16 09:57 09/04/16 10:34 Normal Saline IV 09/04/16 10:56 1,000 mls/hr .BOLUS STA Administration Ondansetron HCl 4 mg 09/04/16 09:57 09/04/16 10:29 Zofran IVPUSH 09/04/16 09:58 4 mg ONETIME ONE Administration - Re-Assessments/Exams Free Text/Narrative Re-Assessment/Exam: 09/04/16 10:04 I ordered an IV NS 1L bolus, zofran 4mg IV, dilaudid 0.5mg IV and labs. 09/04/16 11:31 His CBC and CMP look good. He was not able to give us a sample today. He is seeing GI tomorrow. I will give him something more for nausea and pain. Departure - Departure Time of Disposition: 11:35 Disposition: Home, Self-Care 01 Condition: Good Clinical Impression: Nausea, vomiting and diarrhea Abdominal pain Qualifiers: Abdominal location: epigastric Qualified Code(s): R10.13 - Epigastric pain - Discharge Information Prescriptions: Hydrocodone/Acetaminophen [Hydrocodon-Acetaminophen 5-325] 1 - 2 each PO Q6HR PRN #20 tablet PRN Reason: Pain Ondansetron [Zofran ODT] 4 mg PO Q6H PRN #20 tab.dis PRN Reason: Nausea/Vomiting Forms: ED Department Discharge Additional Instructions: Follow up with your doctor tomorrow. Take the zofran as needed for nausea. Take the hydrocodone as needed for pain. Please return if you are worse. - My Orders Last 24 Hours: My Active Orders 09/04/16 09:57 Sodium Chloride 0.9% [Saline Flush] 10 ml FLUSH ASDIRECTED PRN Peripheral IV Insertion Adult [OM.PC] Stat 09/04/16 09:58 Peripheral IV Care [RC] . DIRECTED ED Antiemetic Medication Reflex [OM.PC] Stat - Assessment/Plan Last 24 Hours: My Active Orders 09/04/16 09:57 Sodium Chloride 0.9% [Saline Flush] 10 ml FLUSH ASDIRECTED PRN Peripheral IV Insertion Adult [OM.PC] Stat 09/04/16 09:58 Peripheral IV Care [RC] . DIRECTED ED Antiemetic Medication Reflex [OM.PC] Stat
[2016-09-04 12:28] VITALS: BP 124/84
== END 2016-09-04 11:40 | disposition home or self-care (01) ==
LOC: JD.ED 09:21
DX: R10.13 Epigastric pain (principal); R19.7 Diarrhea, unspecified; R11.2 Nausea with vomiting, unspecified; J45.909 Unspecified asthma, uncomplicated; Z91.013 Allergy to seafood
CPT/HCPCS: 36415; 80053; 83690; 85025; 96361; 96374; 96375; 99284; J1170; J2405; J7040; J7050

== ENCOUNTER 2016-11-21 21:42 | Emergency (ER) | payer BC, OTHER ==
[2016-11-21 21:59] VITALS: BP 138/84
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
[2016-11-22] MEDS ORDERED: Acetaminophen/oxyCODONE 325-5 MG Tab PO ONE (00:17)
[2016-11-22] MEDS ORDERED: Cyclobenzaprine 10 MG Tab PO ONE (00:18)
--- NOTE | 2016-11-24 18:06 | CT ---
CT thoracic spine Technique: Multiple axial sections were obtained through the thoracic spine. Reconstructed coronal and sagittal images were reviewed. Comparison: No previous thoracic spine imaging. Findings: Vertebral body heights and disc spaces are preserved. Vertebral bodies and posterior arches are intact without fracture. No bony central or bony neural foraminal stenosis is seen. Visualized lungs are clear. No paravertebral soft tissue swelling is identified. No abnormal subluxation is seen on the reconstructed sagittal images. Impression: 1. No abnormality is identified on CT study of the thoracic spine. Diagnostic code #1 I agree with preliminary report issued by [facility] ([facility] report finalized on 11/22/16, 12:38 AM Central Time)
--- NOTE | 2016-11-24 18:07 | CT ---
CT lumbar spine Technique: Multiple axial sections were obtained through the lumbar spine. Reconstructed coronal and sagittal images were reviewed. Comparison: No previous lumbar spine imaging. Findings: Vertebral body heights and disc spaces are maintained. Mild physiologic bulge seen posteriorly at L5-S1. Minimal circumferential disc bulge is seen at L4-L5. Vertebral bodies and posterior arches are intact. No fracture is seen. No bony central or bony neural foraminal stenosis is seen. No abnormal subluxation is seen. Very small nonobstructing stone noted within the right kidney. Impression: 1. Incidental finding of small nonobstructing stone within the right kidney. 2. Slight disc bulging at L4-L5. 3. Nothing acute is appreciated on CT study of the lumbar spine. Diagnostic code #2 I agree with preliminary report issued by [facility] ([facility] report finalized on 11/22/16, 12:36 AM Central Time)
--- NOTE | 2016-11-24 18:07 | CT ---
CT cervical spine Technique: Multiple axial sections were obtained from above C1 inferiorly to the mid T2 level. Reconstructed sagittal and coronal images were reviewed. Comparison: No previous cervical spine imaging. Findings: Vertebral body heights and posterior disc spaces are preserved. Slight anterior disc space narrowing noted at C3-C4, C4-C5 and C5-C6. No bony central or bony neural foraminal stenosis is seen. Vertebral bodies and posterior arches are intact with no fracture. Visualized mastoid sinuses and middle ear cavities are clear. Posterior skull base is intact. No abnormal subluxation is seen on the reconstructed sagittal images. There is slight kyphosis being seen within the cervical spine which is likely due to positioning. Impression: 1. Minimal degenerative change. Nothing acute is identified on CT study of the cervical spine. Diagnostic code #2 I agree with preliminary report issued by [facility] ([facility] report finalized on 11/22/16, 12:37 AM Central Time)
== END 2016-11-22 00:30 | disposition home or self-care (01) ==
LOC: JD.ED 21:42
DX: S39.012A Strain of muscle, fascia and tendon of lower back, initial encounter (principal); S13.9XXA Sprain of joints and ligaments of unspecified parts of neck, initial encounter; S29.019A Strain of muscle and tendon of unspecified wall of thorax, initial encounter; J45.909 Unspecified asthma, uncomplicated; K21.9 Gastro-esophageal reflux disease without esophagitis; Z91.013 Allergy to seafood; V89.2XXA Person injured in unspecified motor-vehicle accident, traffic, initial encounter; Y92.411 Interstate highway as the place of occurrence of the external cause
CPT/HCPCS: 72125; 72128; 72131; 99284; 99285; A9270

== ENCOUNTER 2017-01-02 04:31 | Emergency (ER) | payer BC ==
[2017-01-02] MEDS ORDERED: Ondansetron 4 MG/2 ML SDV IVPUSH ONE (05:03)
[2017-01-02] MEDS ORDERED: HYDROmorphone 0.5 MG/0.5 ML Syringe IVPUSH ONE ×2 (05:06→06:17)
[2017-01-02] MEDS ORDERED: Sodium Chloride 0.9% 1,000 ML IV SCH (05:15)
--- NOTE | 2017-01-02 05:15 | EDM.PDOC ---
<Codey Parish - Last Filed: 01/02/17 06:45> ED HPI GENERAL MEDICAL PROBLEM - General Chief Complaint: Abdominal Pain Stated Complaint: abdominal pain Time Seen by Provider: 01/02/17 04:49 Source of Information: Reports: Patient, RN Notes Reviewed History Limitations: Reports: Language Barrier (Macedonian is his first language, but he understands and speaks Macedonian fairly well) - History of Present Illness INITIAL COMMENTS - FREE TEXT/NARRATIVE: The patient states that he has been experiencing epigastric abdominal pain, non- bloody vomiting, and non-bloody diarrhea on and off since June 2016, but presents now for persistent symptoms since yesterday, 01/01/2017. He is unable to describe the character of the pain other than "terrible". He denies radiation of the pain. He states that the pain is worse after eating, especially rich foods such as thai fries or meat. Medical records indicate that the patient was first evaluated for this on 2016. Workup at that time, including blood work and a urinalysis was unremarkable. He then returned to this ED on 07/18/2016, where a workup included repeat blood work, and H. pylori antigen, and a CT scan of the abdomen and pelvis. His entire workup was again negative, with the exception that his H. pylori antigen was positive. He was treated with amoxicillin, clarithromycin, Flagyl, Protonix, and sucralfate. He then underwent an EGD with Dr. Nohemi Escobar in early July, which reportedly found gastritis, but no ulcer. His symptoms persisted, therefore he was seen by a biology teacher in [place] on 09/05/2016. The patient indicates that he underwent a second EGD and colonoscopy, both of which were negative. He denies having undergone an ultrasound or HIDA scan. In retrospect, the patient states that he did have some improvement of his symptoms while on the Protonix. The patient last ate solid food yesterday morning, 01/01/2017, and last drank last evening. The patient does not have a PCP. Epigastric Pain Score (Numeric/FACES): 10 - Related Data Allergies Allergy/AdvReac Type Severity Reaction Status Date / Time fish derived Allergy Rash Verified 01/02/17 04:39 shellfish derived Allergy Rash Verified 01/02/17 04:39 Home Meds: Home Meds . [No Known Home Meds] 01/02/17 [History] Past Medical History Respiratory History: Reports: Asthma Gastrointestinal History: Reports: Gastritis - Past Surgical History GI Surgical History: Reports: Colonoscopy (x 1), EGD (x 2) Social & Family History - Family History Family Medical History: Noncontributory - Tobacco Use Smoking Status *Q: Former Smoker Years of Tobacco use: 1 Packs/Tins Daily: 0.2 Month Tobacco Last Used: Quit July 2016 Second Hand Smoke Exposure: No - Caffeine Use Caffeine Use: Reports: Coffee - Alcohol Use Alcohol Use History: No - Recreational Drug Use Recreational Drug Use: Yes Drug Use in Last 12 Months: No Recreational Drug Type: Reports: Cocaine, Marijuana/Hashish - Living Situation & Occupation Living situation: Reports: Single, Alone Occupation: Employed ([employer]) ED ROS GENERAL - Review of Systems Review Of Systems: See Below Constitutional: Reports: No Symptoms HEENT: Reports: No Symptoms Respiratory: Reports: No Symptoms Cardiovascular: Reports: No Symptoms Endocrine: Reports: No Symptoms GI/Abdominal: Reports: Abdominal Pain (as per the HPI), Diarrhea (as per the HPI ), Vomiting (as per the HPI) : Reports: No Symptoms Musculoskeletal: Reports: No Symptoms Skin: Reports: No Symptoms Neurological: Reports: No Symptoms Psychiatric: Reports: No Symptoms Hematologic/Lymphatic: Reports: No Symptoms Immunologic: Reports: No Symptoms ED EXAM, GI/ABD - Physical Exam Exam: See Below Exam Limited By: No Limitations General Appearance: Alert, WD/WN, No Apparent Distress Eyes: Bilateral: Normal Appearance, EOMI Ears: Normal External Exam, Hearing Grossly Normal Nose: Normal Inspection, No Blood Throat/Mouth: Normal Inspection, Normal Lips, Normal Voice, No Airway Compromise Head: Atraumatic, Normocephalic Neck: Normal Inspection, Full Range of Motion Respiratory/Chest: No Respiratory Distress, Lungs Clear, Normal Breath Sounds, No Accessory Muscle Use Cardiovascular: Normal Peripheral Pulses, Regular Rate, Rhythm, No Gallop, No JVD, No Murmur, No Rub GI/Abdominal Exam: Normal Bowel Sounds, Soft, No Organomegaly, No Distention, No Abnormal Bruit, No Mass, Tender (Significant to the epigastrium, but also tender in the right upper quadrant and left upper quadrant. Nontender elsewhere. ) (Male) Exam: Deferred Rectal (Males) Exam: Deferred Back Exam: Normal Inspection, Full Range of Motion. No: CVA Tenderness (L), CVA Tenderness (R) Extremities: Normal Inspection, Normal Range of Motion, No Pedal Edema, Normal Capillary Refill Neurological: Alert, Oriented, Normal Cognition, No Motor/Sensory Deficits Psychiatric: Normal Affect Skin Exam: Warm, Dry, Intact, Normal Color, No Rash Course - Vital Signs Last Recorded V/S: Last Vital Signs Temp 97.5 F 01/02/17 04:36 Pulse 110 H 01/02/17 04:36 Resp 16 01/02/17 04:36 BP 130/74 01/02/17 04:36 Pulse Ox 95 01/02/17 04:36 - Orders/Labs/Meds Orders: Active Orders 24 hr Category Date Time Status UA W/MICROSCOPIC [URIN] Stat Lab 01/02/17 05:04 Uncollected Sodium Chloride 0.9% [Normal Saline] 1,000 ml Med 01/02/17 05:15 Active IV ASDIRECTED Sodium Chloride 0.9% [Saline Flush] Med 01/02/17 07:40 Active 10 ml FLUSH ONETIME PRN Medication Orders Sodium Chloride (Normal Saline) 1,000 mls @ 150 mls/hr IV ASDIRECTED NANCY Last Admin: 01/02/17 05:19 Dose: 150 mls/hr Sodium Chloride (Saline Flush) 10 ml FLUSH ONETIME PRN PRN Reason: IV FLUSH Last Admin: 01/02/17 08:17 Dose: 10 ml Labs: Laboratory Tests 01/02/17 01/02/17 Range/Units 05:15 05:15 WBC 9.29 H (4.23-9.07) K/mm3 RBC 4.92 (4.63-6.08) M/mm3 Hgb 14.7 (13.7-17.5) gm/L Hct 42.6 (40.1-51.0) % MCV 86.6 (79.0-92.2) fl MCH 29.9 (25.7-32.2) pg MCHC 34.5 (32.2-35.5) g/dl RDW Std Deviation 44.9 H (35.1-43.9) fL Plt Count 407 H (163-337) K/mm3 MPV 9.4 (9.4-12.3) fl Neutrophils % (Manual) 83 H (40-60) % Band Neutrophils % 0 (0-10) % Lymphocytes % (Manual) 15 L (20-40) % Atypical Lymphs % 0 % Monocytes % (Manual) 1 L (2-10) % Eosinophils % (Manual) 1 (0.8-7.0) % Basophils % (Manual) 0 L (0.2-1.2) Platelet Estimate Increased RBC Morph Comment Normal Sodium 139 (136-145) mEq/L Potassium 3.8 (3.5-5.1) mEq/L Chloride 100 (98-107) mEq/L Carbon Dioxide 28 (21-32) mEq/L Anion Gap 14.8 (5-15) BUN 18 (7-18) mg/dL Creatinine 1.3 (0.7-1.3) mg/dL Est Cr Clr Drug Dosing 85.35 mL/min Estimated GFR (MDRD) > 60 (>60) mL/min BUN/Creatinine Ratio 13.8 L (14-18) Glucose 103 (74-106) mg/dL Calcium 9.6 (8.5-10.1) mg/dL Total Bilirubin 0.8 (0.2-1.0) mg/dL AST 37 (15-37) U/L ALT 79 H (16-63) U/L Alkaline Phosphatase 85 (46-116) U/L Total Protein 8.9 H (6.4-8.2) g/dl Albumin 4.8 (3.4-5.0) g/dl Globulin 4.1 gm/dL Albumin/Globulin Ratio 1.2 (1-2) Lipase 179 (73-393) U/L Meds: Medications Generic Name Dose Route Start Last Admin Trade Name Freq PRN Reason Stop Dose Admin Sodium Chloride 1,000 mls @ 150 mls/hr 01/02/17 05:15 01/02/17 05:19 Normal Saline IV 150 mls/hr ASDIRECTED NANCY Administration Sodium Chloride 10 ml 01/02/17 07:40 01/02/17 08:17 Saline Flush FLUSH 10 ml ONETIME PRN Administration IV FLUSH Discontinued Medications Generic Name Dose Route Start Last Admin Trade Name Freq PRN Reason Stop Dose Admin Diatrizoate Meglum/Diatrizoate Sod 90 ml 01/02/17 07:40 01/02/17 08:17 Gastrografin 37% PO 01/02/17 07:41 90 ml ONETIME ONE Administration Hydromorphone HCl 0.5 mg 01/02/17 05:06 01/02/17 05:21 Dilaudid IVPUSH 01/02/17 05:07 0.5 mg ONETIME ONE Administration Hydromorphone HCl 0.5 mg 01/02/17 06:17 01/02/17 06:23 Dilaudid IVPUSH 01/02/17 06:18 0.5 mg ONETIME ONE Administration Iopamidol 125 ml 01/02/17 07:40 01/02/17 08:17 Isovue-300 (61%) IVPUSH 01/02/17 07:41 100 ml ONETIME ONE Administration Ondansetron HCl 4 mg 01/02/17 05:03 01/02/17 05:20 Zofran IVPUSH 01/02/17 05:04 4 mg ONETIME ONE Administration - Re-Assessments/Exams Free Text/Narrative Re-Assessment/Exam: 01/02/17 05:31 The patient's history and physical examination are compelling for cholecystitis , although it is interesting that he states that he had relief while on Protonix. This may have been a coincidence. While the EGD that he underwent in early July 2016 reportedly showed gastritis, gastritis would not cause tenderness. I have ordered an ultrasound of the right upper quadrant to evaluate for cholecystitis as well as a CT scan of the abdomen and pelvis with oral and IV contrast, but in order to undergo the ultrasound, the patient has to be npo, therefore I have not ordered a GI cocktail. He is not to drink the oral contrast until after he has undergone the ultrasound. 01/02/17 06:18 The patient was given Dilaudid 0.5 mg earlier, and is complaining that his pain is returning. The patient drove himself here, but states that he can get a ride home. I have ordered a second dose of Dilaudid 0.5 mg. 01/02/17 06:48 Ultrasound of the right upper quadrant is read by Dr. Choudhary as: 1. No abnormality is appreciated on right upper quadrant abdominal ultrasound. 01/02/17 07:[address] Gan, and care of the patient turned over to him at this time, for change of shift. The patient has not yet gone to CT scan. He has not yet provided a urine sample. Departure - Departure Disposition: Home, Self-Care 01 Clinical Impression: Abdominal pain Qualifiers: Abdominal location: epigastric Qualified Code(s): R10.13 - Epigastric pain - Discharge Information Referrals: PCP,None [Primary Care Provider] - Forms: ED Department Discharge Additional Instructions: I have scheduled a HIDA scan for you at 9:30 am on Friday01/07/17. Please come early to register and do not eat or drink anything 8 hours before. Then follow up with your doctor or general surgeon. You may also follow up with Dr Epps our general surgeon. His number is [phone]. Please return if you are worse. <Jamshid Gan - Last Filed: 01/02/17 10:13> Course - Re-Assessments/Exams Free Text/Narrative Re-Assessment/Exam: 01/02/17 10:08 I am taking over for Dr Parish. The patient's US looked good. The CT of his abdomen and pelvis shows 2 calcified densities projected within or near the penile urethra. Uncertain etiology. Difficult to exclude urethral stones and please correlate with patient history and symptoms. I talked to the patient about this and it is a piercing. His pain is better. This could be a nonfunctioning gallbladder. I have ordered a HIDA scan for Friday01/07/17 at 9:30am. He is then to follow up with his general surgeon or doctor. Departure - Departure Time of Disposition: 10:10 Condition: Good
--- NOTE | 2017-01-02 06:36 | US ---
Limited abdominal ultrasound: Multiple real-time images of the upper right abdomen were obtained. Comparison: No previous study. Technologist's note: Suboptimal exam due to bowel gas Liver shows no focal parenchymal abnormality. Pancreas not optimally seen. Visualized portions of the pancreas are within normal limits. Gallbladder shows no gallstones. No gallbladder wall thickening or biliary duct dilatation is seen. Inferior vena cava is patent. Portal vein shows hepatopedal flow. Right kidney shows no hydronephrosis or mass. Right kidney has a length of 10.0 cm. Impression: 1. No abnormality is appreciated on right upper quadrant abdominal ultrasound. Diagnostic code #1
[2017-01-02] MEDS ORDERED: Iopamidol 612 MG/ML 150 ML Bottle IVPUSH ONE (07:40)
[2017-01-02] MEDS ORDERED: Sodium Chloride 0.9% 10 ML Syringe FLUSH PRN (07:40)
[2017-01-02] MEDS ORDERED: Diatrizoate Meglumine/Diatrizoate Sodium 37% 120 ML Bottle PO ONE (07:40)
--- NOTE | 2017-01-02 09:12 | CT ---
CT abdomen and pelvis Technique: Multiple axial sections were obtained from above the dome of the diaphragm inferiorly through the pubic symphysis. Intravenous and oral contrast has been given. Findings: 2 calcific type densities are seen projected within or near the urethra. Both these measure about 1.2 cm in size. Uncertain as to etiology but please exclude any symptoms to suggest obstructing urethral stones. Slight atelectasis is noted within both lung bases. Small low-density finding is seen within the right lobe of the liver measuring 5 mm. This is too small to characterize by Hounsfield unit measurements but finding most likely due to a small cyst. No additional abnormality seen within the liver. Spleen appears within normal limits. Adrenal glands show no nodule. Pancreas is within normal limits. Soft tissue nodule seen between the tail of the pancreas and spleen which is felt compatible with accessory splenic tissue. Adrenal glands show no nodule. Kidneys show no abnormal calcifications. Symmetric contrast enhancement is seen between both kidneys. Delayed images shows contrast within the distal ureters and bladder. Aorta shows no aneurysmal dilatation. No retroperitoneal or mesenteric abnormalities are seen. Gallbladder shows no calcified gallstones. Appendix is seen which appears normal. No pelvic mass or adenopathy is seen. No free fluid or inflammatory change is seen. Bone window settings were reviewed which appears within normal limits for the patient's age. Impression: 1. 2 calcific densities projected within or near the penile urethra. Uncertain as to etiology. Difficult to exclude urethral stones and please correlate with patient history and symptoms. 2. Other incidental findings. Nothing acute is otherwise seen. Diagnostic code #3
[2017-01-02 10:47] VITALS: BP 126/69
== END 2017-01-02 10:42 | disposition home or self-care (01) ==
LOC: JD.ED 04:31
DX: R10.13 Epigastric pain (principal); Z87.891 Personal history of nicotine dependence; Z91.013 Allergy to seafood
CPT/HCPCS: 36415; 74177; 76705; 80053; 83690; 85025; 96361; 96374; 96375; 96376; 99284; J1170; J2405; J7040; J7050; Q9963; Q9967

== ENCOUNTER 2021-07-15 15:40 | Emergency (ER) | payer SELFPAY ==
[2021-07-15] MEDS ORDERED: Sodium Chloride 0.9% 1,000 ML IV STA (16:00)
[2021-07-15] MEDS ORDERED: Ondansetron 4 MG/2 ML SDV IVPUSH ONE (16:00)
[2021-07-15] MEDS ORDERED: HYDROmorphone 0.5 MG/0.5 ML Syringe IVPUSH ONE (16:01)
[2021-07-15] MEDS ORDERED: Famotidine 20 MG/2 ML SDV IVPUSH ONE (16:02)
[2021-07-15] MEDS ORDERED: Sodium Chloride 0.9% 10 ML Syringe FLUSH PRN (16:02)
[2021-07-15] MEDS ORDERED: LORazepam 2 MG/ML SDV IVPUSH ONE (16:02)
[2021-07-15] MEDS ORDERED: methylPREDNISolone Sodium Succinate 125 MG/2 ML SDV IVPUSH ONE (16:40)
[2021-07-15] MEDS ORDERED: diphenhydrAMINE 50 MG/ML SDV IVPUSH ONE (16:41)
[2021-07-15] MEDS ORDERED: Iopamidol 755 Mg/ML 100 ML Bottle IVPUSH ONE (17:26)
[2021-07-15] MEDS ORDERED: Sodium Chloride 0.9% 10 ML Syringe FLUSH ONE (17:26)
[2021-07-15] MEDS ORDERED: Sodium Chloride 0.9% 100 ML IV SCH (17:30)
[2021-07-15] MEDS ORDERED: Pantoprazole 40 MG Tab.CR PO ONE (17:57)
[2021-07-15] MEDS ORDERED: Sucralfate 1 GM Tab PO ONE (17:58)
[2021-07-15 18:23] VITALS: BP 125/71; PULSE 90
== END 2021-07-15 19:13 | disposition home or self-care (01) ==
LOC: JD.ED 15:40
DX: K21.9 Gastro-esophageal reflux disease without esophagitis (principal); Z79.899 Other long term (current) drug therapy; Z91.013 Allergy to seafood
CPT/HCPCS: 36415; 71046; 71275; 80053; 84484; 85025; 85379; 86140; 93005; 96374; 96375; 99285; A9270; J1170; J1200; J2060; J2405; J2930; J3490; J7030; Q9967; 93010; 99284